=== PATIENT | female | born 1990 | race Caucasian/White ===

== ENCOUNTER → 2017-02-16 | Emergency (ER) | payer BC ==
[~2017-02-16] VITALS: Ht 165.1 cm; Wt 51.9 kg
[~2017-02-16] MED LIST: AMOXICILLIN500 M1 PO; FIORICET 50-301 EACH PO; NOHOMEMEDS; SPRINTEC1 EACH PO; ZOFRAN ODT4 MG PO; ZOLOFT100 MG PO
[2017-02-16 17:06] VITALS: BP 125/84
== END | disposition home or self-care (01) ==
LOC: EME 15:39
DX: S06.0X0A Concussion without loss of consciousness, initial encounter (principal); W22.09XA Striking against other stationary object, initial encounter; Z87.891 Personal history of nicotine dependence
CPT/HCPCS: 99281; 99284

== ENCOUNTER 2017-09-04 05:49 | Emergency (ER) | payer OTHER ==
[~2017-09-04] VITALS: Ht 165.1 cm; Wt 58.7 kg
[2017-09-04 07:11] LABS: BASOPHIL (%) 0.2 % (0-1); EOSINOPHIL (%) 2.4 % (0-5); EOSINOPHIL COUNT 0.1 K/uL (0-0.3); HEMATOCRIT 38.7 % (36.0-46.0); HEMOGLOBIN 13.2 G/DL (11.9-15.5); IMMATURE GRANULOCYTE (%) 0.2 % (0.0-0.7); LYMPHOCYTE (%) 14.5 % (15-42); LYMPHOCYTE COUNT 0.8 K/uL (1.0-2.8); MCH 31.1 PG (29.0-34.0); MCHC 34.1 G/DL (30.0-36.0); MCV 91.1 FL (83-99); MONOCYTE (%) 13.1 % (3-12); MONOCYTE COUNT 0.8 K/uL (0-0.8); NEUTROPHIL (%) 69.6 % (45-76); PLATELET COUNT 252 K/uL (156-360); RBC DIS.WIDTH-CV 12.5 % (11.8-14.6); RBC DIS.WIDTH-SD 41.7 % (39-53); RED BLOOD COUNT 4.25 M/uL (3.80-5.20); WHITE BLOOD COUNT 5.8 K/uL (4.1-10.2)
[2017-09-04 07:29] LABS: CHLORIDE 105 mEq/L (99-109); POTASSIUM 4.3 mEq/L (3.7-5.4); SODIUM 136 mEq/L (136-147)
[2017-09-04 07:30] LABS: GLUCOSE 109 mg/dL (70-99)
[2017-09-04 07:34] LABS: CREATININE 0.8 mg/dL (0.6-1.3); GFR ESTIMATE (CALCULATED) > 59 mL/min/
[2017-09-04 07:35] LABS: UREA NITROGEN (BUN) 7 mg/dL (9-23)
[2017-09-04] MEDS ORDERED: TAMIFLU75 MG PO (08:09)
[2017-09-04 08:45] VITALS: BP 128/78
== END 2017-09-04 08:48 | disposition home or self-care (01) ==
LOC: EME 05:49
PROVIDERS: Emergency Medicine
DX: J10.1 Influenza due to other identified influenza virus with other respiratory manifestations (principal); Z87.891 Personal history of nicotine dependence; Z88.2 Allergy status to sulfonamides; Z88.0 Allergy status to penicillin; Z88.1 Allergy status to other antibiotic agents
CPT/HCPCS: 71046; 80048; 81003; 85025; 87502; 87651 90; 99281; 99284